=== PATIENT | female | born 1950 | race Caucasian/White ===

== ENCOUNTER → 2016-11-02 | Outpatient (CLI) | payer MEDICARE, MEDICAID ==
[~2016-11-02] MED LIST: ALBU18HF2 ORAL INH; ASPI-914 PO; BENZ200C36 PO; CITA20TA9 PO; DABI150C PO; DOXY100T2 PO; FLEC50TA2 PO; FLUT1DIS31 IH; GABA-338 PO; LEVO150T4 PO; OSEL75CA PO; PRED10TA PO; TRAZ-56 PO
--- NOTE | 2016-11-02 11:06 | DI ---
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 Approximately 60 minutes later 3D PET/CT imaging was performed from the skull base through the mid thighs. The CT images are for attenuation correction purposes only. Findings: No areas of abnormal uptake seen within the skull base or neck. Left maxillary sinus disease. Degenerative uptake in the shoulders. Artifact from prior dental restorations. Physiologic areas of uptake in the neck. Left IJ port catheter seen. Right mastectomy. No metabolically active axillary, mediastinal or internal mammary adenopathy. Expected myocardial uptake. Emphysema in the lungs. No metabolically active pulmonary mass. Tiny subpleural left lower lobe pulmonary nodules are stable from the CT comparisons and do not show increased activity although they would be below the expected threshold for accurate detection. There are most likely due to benign granulomas. Homogeneous liver uptake without focal mass. Expected genitourinary and bowel regions of uptake. No metabolically active lymphadenopathy or mass seen within the abdomen or pelvis. No areas of concerning skeletal uptake. Impression: No evidence of metabolically active metastatic disease. .
== END ==
LOC: IMA 07:54
PROVIDERS: ATTEND Internal Medicine Hematology & Oncology
DX: C50.511 Malignant neoplasm of lower-outer quadrant of right female breast (principal)

== ENCOUNTER 2016-11-29 11:38 | Outpatient (CLI) | payer MEDICARE, MEDICAID ==
[~2016-11-29] VITALS: Ht 170.2 cm; Wt 93.2 kg
[2016-11-29] VITALS (13 sets, daily range): BP systolic 109–144; BP diastolic 53–75; PULSE 66–94; RESP 18–21; TEMP 97.8–98.5; O2SAT 92–95; Ht 170.2 cm; Wt 93.2 kg
[~2016-11-29 11:38] MED LIST changes: +NORMAL SALINE 1,000 ML IV SCH
--- NOTE | 2016-11-29 11:44 | NUR ---
ADMIT PT ADMITTED TO ROOM 120 AT THIS TIME VIA AMBULATORY STATUS. PT REPOSITIONED SELF IN BED. PT ALERT AND ORIENTED. WILL CONTINUE TO MONITOR CLOSELY.
[2016-11-29] MEDS ORDERED: ALEN70TA48 PO (12:09)
[2016-11-29] MEDS ORDERED: ATOR10TA64 PO (12:09)
[2016-11-29] MEDS ORDERED: LISI-625 PO (12:09)
[2016-11-29] MEDS ORDERED: LETR2.5T PO (12:09)
[2016-11-29 12:56] LABS: BASOPHILS % (AUTO) 0.4 % (0-2); EOSINOPHILS # (AUTO) 0.4 T/MM3 (0-0.5); EOSINOPHILS % (AUTO) 5.3 % (0-4); HCT - HEMATOCRIT 40.1 % (36-46); HGB - HEMOGLOBIN 12.7 GM/DL (12-16); IMMATURE GRANULOCYTE # (AUTO) 0.02 T/MM3 (0.00-0.03); IMMATURE GRANULOCYTE % (AUTO) 0.3 % (0.0-0.5); LYMPHOCYTES # (AUTO) 1.3 T/MM3 (1-4.8); LYMPHOCYTES % (AUTO) 17.8 % (23-45); MEAN CORPUSCULAR HGB CONC(MCHC 31.7 GM/DL (31-37); MEAN CORPUSCULAR VOLUME 91.6 UM3 (80-100); MEAN PLATELET VOLUME 11.4 UM3 (9.4-12.4); MONOCYTES # (AUTO) 0.5 T/MM3 (0-0.8); MONOCYTES % (AUTO) 7.3 % (0-9.0); NEUTROPHILS #(AUTO)-ABSOLUTE 4.9 T/MM3 (1.8-7.7); NEUTROPHILS % (AUTO) 68.9 % (33-66); RED BLOOD COUNT 4.38 M/MM3 (4.00-5.20); WBC - WHITE BLOOD COUNT 7.2 T/MM3 (4.5-11.0)
[2016-11-29 13:03] LABS: ANION GAP 11 MEQ/L (5-15); BUN/CREATININE RATIO 20 RATIO (6-26); CALCIUM 9.6 MG/DL (8.4-10.2); CHLORIDE 107 MEQ/L (98-107); CO2 - CARBON DIOXIDE 30 MEQ/L (22-30); CREATININE 0.9 MG/DL (0.7-1.2); GLOMERULAR FILTRATION RATE 62; GLUCOSE 101 MG/DL (65-110); POTASSIUM 3.9 MEQ/L (3.6-5); SODIUM 148 MEQ/L (134-144)
[2016-11-29] MEDS ORDERED: LIDOCAINE 1% (10mg/ml) 30ml SDV ONE (13:07)
[2016-11-29] MEDS ORDERED: HEPARIN 1,000units in NS 500ml BAG IV ONE (13:07)
--- NOTE | 2016-11-29 13:26 | NUR ---
CM CM IN TO VISIT PATIENT, SHE IS A&O. NO FAMILY IS PRESENT. PATIENT PLANS TO DISCHARGE HOME, DENIES ANY DISCHARGE NEEDS. CM CONTACT INFORMATION PROVIDED. REJI SIGNED. LACE SCORE IS 3, NO FURTHER FOLLOW UP IS NEEDED. Addendum: 11/29/16 at 1327 by HALI RED RN Amended: Links added.
[2016-11-29] MEDS ORDERED: IOHEXOL 350mg/ml 200ml BOTTLE ONE (14:21)
--- NOTE | 2016-11-29 14:35 | NUR ---
TO [facility] PT TRANSPORTED TO [facility] AT THIS TIME VIA CART AND ACCOMPANIED BY [facility]. INFORMED CONSENT OBTAIN AND PT VOIDED PRIOR TO TRANSFER. NO FAMILY PRESENT. VITAL SIGNS STABLE UPON TRANSFER. WILL CONTINUE TO MONITOR.
[2016-11-29] MEDS ORDERED: FENTANYL 100mcg/2ml INJECTION ONE (14:39)
[2016-11-29] MEDS ORDERED: MIDAZOLAM 2mg/2ml INJECTION ONE (14:39)
[2016-11-29] MEDS ORDERED: VERAPAMIL 5mg/2ml INJECTION IV ONE (14:40)
[2016-11-29] MEDS ORDERED: NITROGLYCERIN 50mg/10ml INJECTION IV ONE (14:40)
[2016-11-29] MEDS ORDERED: ONDANSETRON 4mg/2ml INJECTION IV PRN (15:15)
[2016-11-29] MEDS ORDERED: LORAZEPAM 0.5 MG TABLET PO PRN (15:15)
[2016-11-29] MEDS ORDERED: NITROGLYCERIN 0.4 MG SUBLINGUAL TABLET SL PRN (15:15)
[2016-11-29] MEDS ORDERED: LORAZEPAM 2 MG/ML INJECTION IV PRN (15:15)
[2016-11-29] MEDS ORDERED: ATROPINE 1 MG/ML VIAL IV PRN (15:15)
[2016-11-29] MEDS ORDERED: BISACODYL 5 MG E.C. TABLET PO PRN (15:15)
[2016-11-29] MEDS ORDERED: MORPHINE SULFATE 4 MG SYRINGE IV PRN ×2 (15:15)
[2016-11-29] MEDS ORDERED: MAG-AL + SIM LIQUID 30 ML UDC PO PRN (15:15)
[2016-11-29] MEDS ORDERED: METOCLOPRAMIDE 10mg/2ml INJECTION IV PRN (15:15)
[2016-11-29] MEDS ORDERED: MILK OF MAGNESIA 30 ML SUSP PO PRN (15:15)
[2016-11-29] MEDS ORDERED: PROMETHAZINE 25 MG INJECTION IV PRN (15:15)
[2016-11-29] MEDS ORDERED: BISACODYL 10 MG SUPPOSITORY RECTALLY PRN (15:15)
[2016-11-29] MEDS ORDERED: HYDROCODONE/APAP 5 mg/325 mg TABLET PO PRN (15:15)
[2016-11-29] MEDS ORDERED: ACETAMINOPHEN 325 MG TABLET PO PRN (15:15)
--- NOTE | 2016-11-29 15:30 | NUR ---
RETURN PATIENT RETURNED TO ROOM 120 AT THIS TIME VIA CART FROM [facility] [employer] [facility]. PT TRANSFERRED SELF FROM CART TO BED. HOB ELEVATED. TR BAND IN PLACE TO RIGHT WRIST. NO S/S OF BLEEDING OR HEMATOMA NOTED TO RIGHT WRIST. VITAL SIGN STABLE ON ROOM AIR. PT AWAKE AND ALERT/ORIENTED. BED ALARM ON. WILL CONTINUE TO MONITOR CLOSELY.
--- NOTE | 2016-11-29 17:11 | CVPROF ---
DATE OF PROCEDURE November 29, 2016 The patient is a pleasant 66-year lady with abnormal stress test and was referred for further evaluation by cardiac catheterization and possible intervention. Informed consent was obtained after explaining the procedure and the potential risks to the patient who agreed to proceed with the procedure. PROCEDURE 1. Left heart catheterization. 2. Coronary angiography. 3. Left ventriculography. TECHNIQUE She was prepped and draped in the usual sterile techniques. 1% lidocaine was used for local anesthesia. Using modified Seldinger technique, arterial access was obtained into the right radial artery with placement of a 6-E[place] arterial sheath. Conscious sedation was performed using Versed and fentanyl. 3000 units of heparin, 300 mcg of nitroglycerin, and 2.5 mg of verapamil were given through the arterial sheath. LEFT VENTRICULOGRAPHY Left ventriculography in single-plane HILL shallow projection showed normal LV systolic function with ejection fraction of 65% with no mitral regurgitation or gradient across the aortic valve. LVEDP was about 12. CORONARY ANGIOGRAPHY Left main, left anterior descending and diagonals, left circumflex and marginals, and right coronary artery all had minor irregularities but no significant lesions with right dominant system. The patient tolerated the procedure well with no complications. IMPRESSION 1. Minor coronary irregularities with no hemodynamically significant lesions. 2. Normal LV systolic function with ejection fraction of 65%. PLAN Medical management. SUSANNE
--- NOTE | 2016-11-29 18:05 | NUR ---
DISCHARGE PT DISCHARGED TO HOME AT THIS TIME IN THE COMPANY OF AN ADULT. PT AMBULATED SELF TO THE ER ENTRANCE WITH THE SUPERVISION OF STAFF. DISCHARGE INSTRUCTIONS INCLUDING DIET, ACTIVITY, MEDICATIONS, FOLLOW UP APPOINTMENT, REPORTABLE S/S, AND CTC TR BAND HEART CATH INSTRUCTIONS GIVEN AND REVIEWED WITH PT. RIGHT WRIST ACCESS SITE DRESSED WITH 2X2 GAUZE AND A TEGADERM AFTER ALL AIR REMOVED FROM TR BAND AND NO S/S OF BLEEDING NOTED. PERSONAL BELONGINGS AND HOME MEDICATIONS RETURNED. LEFT CHEST PORT-A-CATH FLUSHED WITH HEPARIN AND DEACSESSED. PT VERBALIZED UNDERSTANDING OF THESE INSTRUCTIONS AND HAD NO FURTHER QUESTIONS.
== END 2016-11-29 18:05 | disposition home or self-care (01) ==
LOC: SRG 11:38 → CATH 11:38
PROVIDERS: ATTEND Internal Medicine Cardiovascular Disease
DX: I77.89 Other specified disorders of arteries and arterioles (principal); R94.39 Abnormal result of other cardiovascular function study; I48.0 Paroxysmal atrial fibrillation; I36.1 Nonrheumatic tricuspid (valve) insufficiency; I34.0 Nonrheumatic mitral (valve) insufficiency; I27.2 Other secondary pulmonary hypertension; I10 Essential (primary) hypertension; Z90.11 Acquired absence of right breast and nipple; J44.9 Chronic obstructive pulmonary disease, unspecified; J45.909 Unspecified asthma, uncomplicated; E03.9 Hypothyroidism, unspecified; Z79.82 Long term (current) use of aspirin; Z79.02 Long term (current) use of antithrombotics/antiplatelets; Z79.899 Other long term (current) drug therapy; Z87.891 Personal history of nicotine dependence; Z82.49 Family history of ischemic heart disease and other diseases of the circulatory system
CPT/HCPCS: 80048; 85025; 93005; 93458; C1769; C1893; J1642; J1644; J2250; J3010; J3490; J7030; Q9967

== ENCOUNTER → 2017-01-03 | Outpatient (CLI) | payer MEDICARE, MEDICAID ==
[~2017-01-03] MED LIST changes: +ALEN70TA48 PO; +ATOR10TA64 PO; -BENZ200C36 PO; -DOXY100T2 PO; +LETR2.5T PO; +LISI-625 PO; -NORMAL SALINE 1,000 ML IV SCH; -OSEL75CA PO; -PRED10TA PO
== END ==
LOC: WC.BC 09:58
PROVIDERS: ATTEND Internal Medicine
DX: Z12.31 Encounter for screening mammogram for malignant neoplasm of breast (principal); N64.59 Other signs and symptoms in breast; C50.911 Malignant neoplasm of unspecified site of right female breast; Z90.11 Acquired absence of right breast and nipple
CPT/HCPCS: 77063; G0202